=== PATIENT | male | born 1985 | race Caucasian/White ===

== ENCOUNTER 2017-05-10 21:27 | Emergency (ER) | payer BC | END 2017-05-11 01:55 | disposition home or self-care (01) | LOC: FTE 21:27 | DX: B35.6 Tinea cruris (principal) | CPT/HCPCS: 99283 ==

== ENCOUNTER 2017-06-12 17:08 | Emergency (ER) | payer BC ==
[2017-06-12 19:48] LABS: URINE BLOOD (Dip) POC Trace-intact (NEGATIVE); URINE GLUCOSE (Dip) POC Negative (NEGATIVE); URINE KETONES (Dip) POC 2+ (NEGATIVE); URINE LEUKOCYTE EST (Dip) POC Negative (NEGATIVE); URINE NITRITE (Dip) POC Negative (NEGATIVE); URINE TOTAL PROTEIN POC 1+ (NEGATIVE)
[2017-06-12 19:48] LABS: URINE PH (Dip) POC 6.5 (5.0-8.5)
== END 2017-06-12 20:32 | disposition home or self-care (01) ==
LOC: FTE 17:08
DX: N48.1 Balanitis (principal); J45.909 Unspecified asthma, uncomplicated; N50.9 Disorder of male genital organs, unspecified
CPT/HCPCS: 81003; 87086; 87591; 99283

== ENCOUNTER 2017-06-17 09:24 | Emergency (ER) | payer BC | END 2017-06-17 09:48 | disposition home or self-care (01) | LOC: FTE 09:24 | DX: K64.4 Residual hemorrhoidal skin tags (principal) | CPT/HCPCS: 99284 ==